=== PATIENT | female | born 1965 | race Caucasian/White ===

== ENCOUNTER 2017-06-10 19:30 | Outpatient (CLI) | payer BC | END 2017-06-10 19:31 | disposition home or self-care (01) | LOC: SLEEPLAB 19:30 | PROVIDERS: ATTEND Psychiatry & Neurology Neurology | DX: G47.33 Obstructive sleep apnea (adult) (pediatric) (principal); F41.8 Other specified anxiety disorders; E66.9 Obesity, unspecified; I10 Essential (primary) hypertension; R06.83 Snoring | CPT/HCPCS: 95811 ==

== ENCOUNTER 2019-02-26 09:46 | Outpatient (CLI) | payer BC ==
--- NOTE | 2019-02-26 16:31 | PET ---
PET SCAN DEMENTIA HISTORY: Memory difficulties RADIOPHARMACEUTICAL: 7.6 mCi [id number] injected intravenously in the right antecubital fossa FINDINGS: There is bilateral hypometabolism in the parietal lobes. Metabolic activity is lower in the occipital lobes compared to the temporal lobes. 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 Evaluation with HAIR scan would be helpful.
== END 2019-02-26 09:47 | disposition home or self-care (01) ==
LOC: PET 09:46
PROVIDERS: ATTEND Psychiatry & Neurology Neurology
DX: R41.3 Other amnesia (principal)
CPT/HCPCS: 78608; A9552

== ENCOUNTER 2020-05-26 12:47 | Outpatient (CLI) | payer BC ==
--- NOTE | 2020-05-26 13:23 | MMO ---
Bilateral MAMMO Bilat Screen [facility]. CLINICAL HISTORY: Patient is 54 years old and is seen for screening. The patient has the following family history of breast cancer: mother, at age 45, premenopausal; sister, at age 35, premenopausal; sister, at age 26, premenopausal; maternal grandmother, at age 60, bilateral, Bilateral mastectomy and maternal grandmother, [place]. The patient has no personal history of cancer. VIEWS: The views performed were: bilateral craniocaudal with tomosynthesis and bilateral mediolateral oblique with tomosynthesis. FILMS COMPARED: The present examination has been compared to prior imaging studies performed at [facility] on 02/18/2006, 03/06/2007 and 03/08/2011. This study has been interpreted with the assistance of computer-aided detection. MAMMOGRAM FINDINGS: There are scattered fibroglandular densities. There is a new high density, oval mass measuring 10 millimeters with circumscribed margins seen in the inner region of the left breast. In the right breast, there are no suspicious masses, calcifications or areas of architectural distortion. IMPRESSION: NEW MASS IN THE LEFT BREAST REQUIRES ADDITIONAL EVALUATION. AN ULTRASOUND EXAM IS RECOMMENDED. THE RESULTS OF THIS EXAM WERE SENT TO THE PATIENT. ACR BI-RADS Category 0 - Incomplete: Need additional imaging evaluation. [facility] will notify the patient of the need for additional imaging services. MAMMOGRAPHY NOTE: 1. A negative mammogram report should not delay a biopsy if a dominant of clinically suspicious mass is present. 2. Approximately 10% to 15% of breast cancers are not detected by mammography. 3. Adenosis and dense breasts may obscure an underlying neoplasm. Reported by: TONIA SIMS MD Electonically Signed: [id number]
== END 2020-05-26 12:48 | disposition home or self-care (01) ==
LOC: BICMAMMO 12:47
PROVIDERS: ATTEND Obstetrics & Gynecology
DX: Z12.31 Encounter for screening mammogram for malignant neoplasm of breast (principal); N63.20 Unspecified lump in the left breast, unspecified quadrant; Z80.3 Family history of malignant neoplasm of breast
CPT/HCPCS: 77063; 77067

== ENCOUNTER 2020-06-05 14:50 | Outpatient (CLI) | payer BC ==
--- NOTE | 2020-06-05 15:06 | ULT ---
EXAM: US Breast Limited Lt DATE: 06/05/2020 12:00 AM INDICATION: Additional ultrasound views for a new left breast mass in the 10:00 position, 3 cm from the nipple COMPARISON: Screening mammogram dated May 26, 2020 FINDING: Corresponding to the mass lesion of the left breast 10:00 position, 3 cm of the nipple, is an anechoic with posterior acoustic wall enhancing, 1 x 1 x 0.5 cm cyst. IMPRESSION:BI-RADS Category 2-benign. The mass lesion identified in the left breast 10:00 position, 3 cm from the nipple, corresponds to a simple cyst.
== END 2020-06-05 14:51 | disposition home or self-care (01) ==
LOC: BICULT 14:50
PROVIDERS: ATTEND Obstetrics & Gynecology
DX: N63.22 Unspecified lump in the left breast, upper inner quadrant (principal)